=== PATIENT | female | born 1990 | race African-American/Black ===

== ENCOUNTER → 2016-10-15 13:50 | Emergency (ER) | payer OTHER ==
[2016-10-15 12:37] LABS: URINE SOURCE CLEAN CATCH
[2016-10-15 12:57] LABS: CULTURE INDICATED? YES; URBCS1 AUWI 25-50 /[HPF] (0-2); URINE APPEARANCE TURBID; URINE BACTERIA AUWI 4+ (NEGATIVE); URINE BILIRUBIN NEG (NEG); URINE BLOOD 3+ (NEG); URINE COLOR DK YELLOW; URINE GLUCOSE NEG (NEG); URINE KETONE TRACE (NEG); URINE LEUKOCYTE ESTERASE 3+ (NEG); URINE NITRATE POS (NEG); URINE PH 5.5 (5-8); URINE PROTEIN 1+ (NEG); URINE SPECIFIC GRAVITY 1.025 (1.003-1.035); URINE SQUAMOUS EPITHELIAL CELL MOD /[HPF]; UWBCS1 AUWI INNUM (0-5)
[2016-10-15 13:10] LABS: URINE MUCUS PRESENT
== END | disposition left against medical advice (07) ==
LOC: CED 13:50
PROVIDERS: Emergency Medicine
DX: Z53.21 Procedure and treatment not carried out due to patient leaving prior to being seen by health care provider (principal)
CPT/HCPCS: 81003; 84703; 87086; 87088; 87186